=== PATIENT | male | born 1950 | race Caucasian/White ===

== ENCOUNTER 2022-11-19 11:21 | Emergency (ER) | payer MEDICARE ==
[2022-11-19 11:26] VITALS: TEMP 97.4
--- NOTE | 2022-11-19 12:08 | XR ---
EXAMINATION TYPE: XR chest 2V DATE OF EXAM: 11/19/2022 COMPARISON: NONE TECHNIQUE: PA and lateral views submitted. HISTORY: Chest pain FINDINGS: The lungs are clear and there is no pneumothorax, pleural effusion, or focal pneumonia. Heart size normal and no overt failure. Osseous structures demonstrate hypertrophic and degenerative changes of the spine. The nodule in the left lower lobe measuring 1 cm. Mild hyperinflation. No overt failure. IMPRESSION: 1. There is a 1 cm nodule left lower lobe. CT of the chest recommended. 2. No acute infiltrate or overt failure. 3. Correlate for COPD.
[2022-11-19 12:27] LABS: Basophils % (A) 1 %; Eosinophils # (A) 0.1 k/uL (0-0.7); Eosinophils % (A) 2 %; HCT 43.3 % (39.0-53.0); HGB 14.3 gm/dL (13.0-17.5); Lymphocytes # (A) 1.4 k/uL (1.0-4.8); Lymphocytes % (A) 25 %; MCH 29.6 pg (25.0-35.0); MCHC 33.1 g/dL (31.0-37.0); MCV 89.4 fL (80.0-100.0); Mean Platelet Volume 8.1; Monocytes # (A) 0.4 k/uL (0-1.0); Monocytes % (A) 8 %; Neutrophils # (A) 3.4 k/uL (1.3-7.7); Neutrophils % (A) 62 %; Platelet Count 229 k/uL (150-450); RBC 4.84 m/uL (4.30-5.90); WBC 5.6 k/uL (3.8-10.6)
[2022-11-19 12:46] LABS: Prothrombin Time 10.2 sec (9.0-12.0)
[2022-11-19 12:54] LABS: ALT 39 U/L (4-49); AST 31 U/L (17-59); African American GFR (CKD) >90 (>60 ml/min/1.73 sqM); Alkaline Phosphatase 92 U/L (38-126); Anion Gap 9 mmol/L; Blood Urea Nitrogen 13 mg/dL (9-20); Calcium 9.4 mg/dL (8.4-10.2); Carbon Dioxide 26 mmol/L (22-30); Chloride 103 mmol/L (98-107); Glucose 100 mg/dL (74-99); Magnesium 2.2 mg/dL (1.6-2.3); Non-African American GFR(CKD) >90 (>60 ml/min/1.73 sqM); Potassium 4.3 mmol/L (3.5-5.1); Sodium 138 mmol/L (137-145); Total Bilirubin 0.6 mg/dL (0.2-1.3); Total Protein 7.3 g/dL (6.3-8.2)
[2022-11-19 13:22] VITALS: BP 120/72; PULSE 75; RESP 18
--- NOTE | 2022-11-19 13:32 | ED ---
General Adult HPI - General Chief complaint: Recheck/Abnormal Lab/Rx Stated complaint: Abnormal EKG Time Seen by Provider: 11/19/22 11:28 Source: patient, RN notes reviewed Mode of arrival: wheelchair Limitations: no limitations - History of Present Illness Initial comments: 71-year-old male presents emergency Department from PCPs office for evaluation o f abnormal EKG. Patient states he went for presurgical clearance and was sent here for evaluation. Patient states he has no symptoms denies chest pain palpitations headache dizziness nausea vomiting states he is scheduled for colon surgery as he recently brought by his colon cancer. Patient denies any medications patient states that no prior cardiac workup. - Related Data Home Medications Medication Instructions Recorded Confirmed No Known Home Medications 10/24/22 11/19/22 Allergies Allergy/AdvReac Type Severity Reaction Status Date / Time No Known Allergies Allergy Verified 11/19/22 12:14 Review of Systems ROS Statement: Those systems with pertinent positive or pertinent negative responses have been documented in the HPI. ROS Other: All systems not noted in ROS Statement are negative. Past Medical History Past Medical History: Cancer, CVA/TIA Additional Past Medical History / Comment(s): Hx CVA in 2008, "have little bit of balance problems, may have slurred speech when nervous". colon cancer 2022 History of Any Multi-Drug Resistant Organisms: None Reported Past Surgical History: Tonsillectomy Additional Past Surgical History / Comment(s): Colonoscopy, deviated septum surgery. Past Anesthesia/Blood Transfusion Reactions: No Reported Reaction Past Psychological History: No Psychological Hx Reported Smoking Status: Never smoker Past Alcohol Use History: None Reported Past Drug Use History: None Reported - Past Family History Mother Family Medical History: No Reported History General Exam Limitations: no limitations General appearance: alert, in no apparent distress Head exam: Present: atraumatic, normocephalic, normal inspection Eye exam: Present: normal appearance, PERRL, EOMI. Absent: scleral icterus, conjunctival injection, periorbital swelling ENT exam: Present: normal exam, normal oropharynx, mucous membranes moist Neck exam: Present: normal inspection, full ROM. Absent: tenderness, meningismus, lymphadenopathy Respiratory exam: Present: normal lung sounds bilaterally. Absent: respiratory distress, wheezes, rales, rhonchi, stridor Cardiovascular Exam: Present: regular rate, normal rhythm, normal heart sounds. Absent: systolic murmur, diastolic murmur, rubs, gallop, clicks GI/Abdominal exam: Present: soft, normal bowel sounds. Absent: distended, tenderness, guarding, rebound, rigid Neurological exam: Present: alert, oriented X3, CN II-XII intact Course Vital Signs 11/19/22 11/19/22 11:23 13:20 Temperature 97.4 F L Pulse Rate 63 75 Respiratory 20 18 Rate Blood Pressure 160/95 120/72 O2 Sat by Pulse 99 95 Oximetry EKG Findings - EKG Comments: EKG Findings:: EKG performed at 11:33 sinus arrhythmia with occasional PVC rate of 77 LA 174 QRS 111 QT/QTC 376/ 408 - EKG Results: EKG: interpreted by ELYSE Medical Decision Making - Medical Decision Making Was pt. sent in by a medical professional or institution (, PA, CHILDREN LIBRARIAN, urgent care, hospital, or [facility]...) When possible be specific @ -Signed by PCP Did you speak to anyone other than the patient for history (EMS, parent, family, police, friend...)? What history was obtained from this source @ -No Did you review nursing and triage notes (agree or disagree)? Why? @ -I reviewed and agree with nursing and triage notes Were old charts reviewed (outside hosp., previous admission, EMS record, old EKG, old radiological studies, urgent care reports/EKG's, [facility] records)? Report findings @ -No old charts were reviewed Differential Diagnosis (chest pain, altered mental status, abdominal pain women, abdominal pain men, vaginal bleeding, weakness, fever, dyspnea, syncope, headache, dizziness, GI bleed, back pain, seizure, CVA, palpatations, mental health, musculoskeletal)? @ -nDifferential Palpitations Ventricular arrhythmias, atrial arrhythmias, myocardial infarction, anemia, thyrotoxicosis, electrolyte imbalance, hypokalemia, pulmonary embolism, pulmonary disease, drugs, alcohol, anxiety, stress.... This is not meant to be an all-inclusive list.e EKG interpreted by me (3pts min.). @ -As above X-rays interpreted by me (1pt min.). @ -None done CT interpreted by me (1pt min.). @ -None done U/S interpreted by me (1pt. min.). @ -None done What testing was considered but not performed or refused? (CT, X-rays, U/S, labs)? Why? @ -Stress test that can be completed outpatient What meds were considered but not given or refused? Why? @ -None Did you discuss the management of the patient with other professionals (professionals i.e. , PA, CHILDREN LIBRARIAN, lab, RT, psych nurse, elementary school social worker, expansion joint finisher, teacher, senior escrow officer, case coordinator)? Give summary @ -No Was smoking cessation discussed for >3mins.? @ -No Was critical care preformed (if so, how long)? @ -No Were there social determinants of health that impacted care today? How? (Homelessness, low income, unemployed, alcoholism, drug addiction, transportation, low edu. Level, literacy, decrease access to med. care, snf, rehab)? @ -No Was there de-escalation of care discussed even if they declined (Discuss DNR or withdrawal of care, Hospice)? DNR status @ -No What co-morbidities impacted this encounter? (DM, HTN, Smoking, COPD, CAD, Cancer, CVA, ARF, Chemo, Hep., AIDS, mental health diagnosis, sleep apnea, morbid obesity)? @ -None Was patient admitted / discharged? Hospital course, mention meds given and route, prescriptions, significant lab abnormalities, going to OR and other pertinent info. @ -Discharged patient's workup was negative patient is asymptomatic patient has sinus arrhythmia patient can complete outpatient stress test with cardiology. Patient denies chest pain shortness of breath patient laboratory studies unremarkable. Undiagnosed new problem with uncertain prognosis? @ -No Drug Therapy requiring intensive monitoring for toxicity (Heparin, Nitro, Insulin, Cardizem)? @ -No Were any procedures done? @ -No Diagnosis/symptom? @ -[Sinus arrhythmia Acute, or Chronic, or Acute on Chronic? @ -Acute Uncomplicated (without systemic symptoms) or Complicated (systemic symptoms)? @ -Uncomplicated Side effects of treatment? @ -No Exacerbation, Progression, or Severe Exacerbation? @ -No Poses a threat to life or bodily function? How? (Chest pain, USA, [place], pneumonia, PE, COPD, DKA, ARF, appy, cholecystitis, CVA, Diverticulitis, Homicidal, Fiona cidal, threat to staff... and all critical care pts) @ -No - Lab Data Result diagrams: 11/19/22 12:14 11/19/22 12:14 Lab Results 11/19/22 11/19/22 11/19/22 Range/Units 12:14 12:14 12:14 WBC 5.6 (3.8-10.6) k/uL RBC 4.84 (4.30-5.90) m/uL Hgb 14.3 (13.0-17.5) gm/dL Hct 43.3 (39.0-53.0) % MCV 89.4 (80.0-100.0) fL MCH 29.6 (25.0-35.0) pg MCHC 33.1 (31.0-37.0) g/dL RDW 13.0 (11.5-15.5) % Plt Count 229 (150-450) k/uL MPV 8.1 Neutrophils % 62 % Lymphocytes % 25 % Monocytes % 8 % Eosinophils % 2 % Basophils % 1 % Neutrophils # 3.4 (1.3-7.7) k/uL Lymphocytes # 1.4 (1.0-4.8) k/uL Monocytes # 0.4 (0-1.0) k/uL Eosinophils # 0.1 (0-0.7) k/uL Basophils # 0.0 (0-0.2) k/uL PT 10.2 (9.0-12.0) sec INR 1.0 (<1.2) APTT 24.0 (22.0-30.0) sec Sodium 138 (137-145) mmol/L Potassium 4.3 (3.5-5.1) mmol/L Chloride 103 (98-107) mmol/L Carbon Dioxide 26 (22-30) mmol/L Anion Gap 9 mmol/L BUN 13 (9-20) mg/dL Creatinine 0.78 (0.66-1.25) mg/dL Est GFR (CKD-EPI)AfAm >90 (>60 ml/min/1.73 sqM) Est GFR (CKD-EPI)NonAf >90 (>60 ml/min/1.73 sqM) Glucose 100 H (74-99) mg/dL Calcium 9.4 (8.4-10.2) mg/dL Magnesium 2.2 (1.6-2.3) mg/dL Total Bilirubin 0.6 (0.2-1.3) mg/dL AST 31 (17-59) U/L ALT 39 (4-49) U/L Alkaline Phosphatase 92 (38-126) U/L Troponin I (0.000-0.034) ng/mL NT-Pro-B Natriuret Pep pg/mL Total Protein 7.3 (6.3-8.2) g/dL Albumin 4.0 (3.5-5.0) g/dL TSH 2.100 (0.465-4.680) mIU/L 11/19/22 11/19/22 Range/Units 12:14 12:14 WBC (3.8-10.6) k/uL RBC (4.30-5.90) m/uL Hgb (13.0-17.5) gm/dL Hct (39.0-53.0) % MCV (80.0-100.0) fL MCH (25.0-35.0) pg MCHC (31.0-37.0) g/dL RDW (11.5-15.5) % Plt Count (150-450) k/uL MPV Neutrophils % % Lymphocytes % % Monocytes % % Eosinophils % % Basophils % % Neutrophils # (1.3-7.7) k/uL Lymphocytes # (1.0-4.8) k/uL Monocytes # (0-1.0) k/uL Eosinophils # (0-0.7) k/uL Basophils # (0-0.2) k/uL PT (9.0-12.0) sec INR (<1.2) APTT (22.0-30.0) sec Sodium (137-145) mmol/L Potassium (3.5-5.1) mmol/L Chloride (98-107) mmol/L Carbon Dioxide (22-30) mmol/L Anion Gap mmol/L BUN (9-20) mg/dL Creatinine (0.66-1.25) mg/dL Est GFR (CKD-EPI)AfAm (>60 ml/min/1.73 sqM) Est GFR (CKD-EPI)NonAf (>60 ml/min/1.73 sqM) Glucose (74-99) mg/dL Calcium (8.4-10.2) mg/dL Magnesium (1.6-2.3) mg/dL Total Bilirubin (0.2-1.3) mg/dL AST (17-59) U/L ALT (4-49) U/L Alkaline Phosphatase (38-126) U/L Troponin I <0.012 (0.000-0.034) ng/mL NT-Pro-B Natriuret Pep 85 pg/mL Total Protein (6.3-8.2) g/dL Albumin (3.5-5.0) g/dL TSH (0.465-4.680) mIU/L Disposition Clinical Impression: Sinus arrhythmia Disposition: HOME SELF-CARE Condition: Stable Instructions (If sedation given, give patient instructions): Heart Palpitations (ED) Additional Instructions: Please return to the Emergency Department if symptoms worsen or any other concerns. Is patient prescribed a controlled substance at d/c from ED?: No Referrals: Koffi Hu MD [Primary Care Provider] - 1-2 days Time of Disposition: 14:04
== END 2022-11-19 14:15 | disposition home or self-care (01) ==
LOC: EC 11:21
DX: I49.8 Other specified cardiac arrhythmias (principal); Z90.89 Acquired absence of other organs
CPT/HCPCS: 36415; 71046; 80053; 83735; 83880; 84443; 84484; 85025; 85610; 85730; 93005; 99284

== ENCOUNTER 2022-12-15 07:40 | Inpatient (IN) | payer MEDICARE ==
[~2022-12-15 07:40] MED LIST: ACETAMINOPHEN TAB 500 MG TAB PO PRN; ALVIMOPAN 12 MG CAPSULE PO PRN; DEXAMETHASONE SOD PHOSPHATE 4 MG/ML 1 ML VIAL IV ONE; HEPARIN SODIUM,PORCINE/PF 5,000 UNIT/0.5 ML SYRINGE SQ PRN; HYDROmorphone 0.5 MG/0.5 ML SYRINGE IVP PRN; LIDOCAINE 1% (10MG/ML) FOR IV START INTRADERMA PRN; MIDAZOLAM 2 MG/2 ML VIAL IV PRN; ONDANSETRON 4 MG/2 ML VIAL IVP ONE; metroNIDAZOLE-NS PMX 500 MG in SALINE 1 100ML.BAG IVPB PRN
--- NOTE | 2022-12-15 11:27 | P.GSHP ---
History of Present Illness H&P Date: 12/15/22 Chief Complaint: Colon cancer 72-year-old male here today for elective sigmoid resection. Patient recently found to have colon cancer and a 2 cm colon polyp. This is present 2024 cm from the anal verge. He underwent tattooing of this polypoid scar site following the initial colonoscopy. Otherwise doing well. CAT scan showed no evidence of malignancy. Past Medical History Past Medical History: Cancer, CVA/TIA Additional Past Medical History / Comment(s): Hx CVA in 2008, "have little bit of balance problems, may have slurred speech when nervous". colon cancer 2022 History of Any Multi-Drug Resistant Organisms: None Reported Past Surgical History: Tonsillectomy Additional Past Surgical History / Comment(s): Colonoscopy, deviated septum surgery. Past Anesthesia/Blood Transfusion Reactions: No Reported Reaction Past Psychological History: No Psychological Hx Reported Smoking Status: Never smoker Past Alcohol Use History: None Reported Past Drug Use History: None Reported - Past Family History Mother Family Medical History: No Reported History Medications and Allergies Home Medications Medication Instructions Recorded Confirmed Type No Known Home Medications 10/24/22 12/15/22 History Allergies Allergy/AdvReac Type Severity Reaction Status Date / Time No Known Allergies Allergy Verified 12/15/22 11:16 Surgical - Exam Physical exam: General: Well-developed, well-nourished HEENT: Normocephalic, sclerae nonicteric Abdomen: Nontender, nondistended, umbilical hernia with thin overlying skin Extremities: No edema Neuro: Alert and oriented Assessment and Plan (1) Cancer of sigmoid colon Narrative/Plan: 72-year-old male with sigmoid colon cancer. We'll proceed with open low anterior sigmoid resection with umbilical hernia repair. Risks of bleeding, infection, leak, abscess, ostomy, ureteral injury, bladder injury, recurrence, wound infection, anesthesia related complications reviewed. Patient understands and wishes to proceed. Current Visit: Yes Status: Acute Code(s): C18.7 - MALIGNANT NEOPLASM OF SIGMOID COLON SNOMED Code(s): 807778439 (2) Umbilical hernia Current Visit: Yes Status: Acute Code(s): K42.9 - UMBILICAL HERNIA WITHOUT OBSTRUCTION OR GANGRENE SNOMED Code(s): 915616453
[2022-12-15 11:40] LABS: Glucose,Whole Blood 98 mg/dL (70-110)
[2022-12-15] MEDS: LACTATED RINGERS 1,000 ML IV SCH ×2 (11:42→23:01)
[2022-12-15] MEDS ORDERED: NALOXONE 0.4 MG/ML 1 ML VIAL IV PRN (12:56)
--- NOTE | 2022-12-15 12:56 | P.ANPRN ---
Procedure Note - Anesthesia - Epidural/Spinal Epidural Continuous Time Out Performed: Yes Date of Procedure: 12/15/22 Procedure Start Time: 11:51 Procedure Stop Time: 12:01 Location of Patient: PreOp Indication: Acute Post-Operative Pain, Requested by Surgeon Sedation Type: Sedate with meaningful contact maintained Preparation: Sterile Dressing Position: Sitting Catheter: Indwelling Needle Guage: 18 Blood Aspirated: No Pain Paresthesia on Injection Noted: No Events: Uneventful and Well Tolerated (Xylocaine 1.5% with epi 1: 200 3 mL given as a test dose with no adverse effect)
[2022-12-15] MEDS ORDERED: LACTATED RINGERS 1,000 ML IV ONE (13:25)
[2022-12-15] MEDS ORDERED: ONDANSETRON 4 MG/2 ML VIAL IVP PRN (14:31)
[2022-12-15] MEDS ORDERED: HYDROmorphone 1 MG/ML 1 ML SYRINGE IVP PRN (14:31)
[2022-12-15] MEDS ORDERED: METOCLOPRAMIDE 5 MG/ML 2 ML VIAL IVP PRN (14:31)
--- NOTE | 2022-12-15 14:39 | P.OP ---
Date of Procedure: 12/15/22 Procedure(s) Performed: PREOPERATIVE DIAGNOSIS: Sigmoid colon cancer, incarcerated umbilical hernia POSTOPERATIVE DIAGNOSIS: Same PROCEDURE: Low anterior sigmoid resection, umbilical hernia repair, umbilectomy SURGEON: Braulio EBL: 75 mL ANESTHESIA: General COMPLICATIONS: None OPERATIVE PROCEDURE: Patient place in the operative table in the supine position. The patient was placed under general anesthesia. The patient was then placed in lithotomy. The abdomen was prepped and draped in usual sterile fashion. A vertical incision was made extending from the infraumbilical location to the suprapubic location. The skin of the umbilicus was excised as there was some ischemic changes and a small area of induration. The underlying umbilical hernia contained omentum. The adhesions to the hernia sac were cauterized. The hernia sac was excised. The fascia was then opened vertically using electrocautery. The Bookwalter retractor was utilized. The sigmoid colon was fully mobilized by incising the white line of Toldt. The left and right ureters were both identified and preserved. A site was chosen for division of the sigmoid colon proximally. The site of tattooing was present in the distal sigmoid colon. A small colotomy was created and the 29 EEA anvil was advanced into the lumen of the sigmoid colon and milked proximally. The bowel was then divided using a linear 75 stapler and the anvil was brought out adjacent to the staple line. A 3-0 silk pursestring suture was placed around the anvil at that location. The mesentery was divided using the LigaSure device. The inferior mesenteric artery was divided using [address]section took place down to the proximal rectum where the tenia was noted to splay out. The proximal rectum was divided using the contour stapler. The specimen was passed off the field at that point. No signs of bleeding at either staple line was noted after irrigation. The stapler was then inserted into the anus and brought up to the staple line. The obturator was brought out just anterior to the staple line. The 2 portions of the stapler were connected to one another and subsequently tightened and fired. The bowel was clamped proximal to the anastomosis. The rigid sigmoidoscope was utilized to fill the anastomotic site nicely with air. There was saline in the pelvis at this time. No evidence of leak was seen. The abdomen was irrigated with saline. The liver, stomach, visualized colon, and small bowel appeared normal. The midline fascia and fascia at the umbilical hernia site was then reapproximated using 3 separate double-stranded #1 PDS sutures. The subcutaneous tissues were closed using 3-0 Vicryl sutures. The skin was then closed using malissa. Sterile dressings were then applied. DISPOSITION: Stable to recovery room
[2022-12-15] MEDS: ROPIVACAINE 250 MG, HYDROMORPHONE (PF) 5 MG in SODIUM CHLORIDE 0.9% 200 ML EPIDURAL PRN (14:46)
--- NOTE | 2022-12-15 17:00 | P.CONS ---
History of Present Illness - Reason for Consult Consult date: 12/15/22 - Chief Complaint medical management - History of Present Illness 72-year-old man who recently had a colonoscopy and was found to have a cancerous polyp present for sigmoid colectomy with general surgery. Gen. surgery consulted the medicine for medical management. His history includes a stroke/TIA in 2010, but unfortunately patient has not followed with regularly for the last several years. He does not take any medications at home. He has complaints of incisional pain, otherwise denies fevers, chills, nausea, vomiting, chest pain, palpitations, syncope, presyncope, cough, dyspnea, a bdominal pain, constipation, diarrhea, dysuria, dyschezia, numbness/weakness of extremities. Upon my evaluation, patient was afebrile, 125/74, heart rate 68, 96% on 2 L nasal cannula. [id number] glucose was 98. No images to review. All Systems reviewed and pertinent positives and negatives noted in HPI, all other symptoms are negative Gen: in no apparent distress, resting comfortably in bed Eyes: PERRL, no scleral injection or icterus HENT: normocephalic, atraumatic, good hearing acuity, moist mucous membranes Neck: no tracheal deviation, full range of motion Resp: good air exchange, breathing comfortably with no accessory muscle use, no tactile fremitus CVS: good distal perfusion x 4, no pitting edema GI: soft, NTTP, ND, no hepatosplenomegaly : no suprapubic tenderness, no CVAT, aden catheter not present MSK: no clubbing, no cyanosis, no noted contractures of extremities Skin: no noted rashes, petechiae; temperature of skin is appropriate Neuro: moving all extremities without signs of weakness, CN II-XII intact Psych: cooperative, euthymic mood, insight and judgment intact Assessment: History of TIA/CVA Colon cancer status post sigmoidectomy Plan: Vital signs reviewed and noted in the HPI Lab work reviewed and noted in the HPI Ordered CBC, basic metabolic panel, magnesium, lipid panel, TSH, A1c for tomorrow Start Atorvastatin 20 mg at bedtime Patient was counseled on use of aspirin 81 mg in the context of TIA/stroke in the past, however, we will defer this medication at this time due to recent colon surgery Patient is full code Past Medical History Past Medical History: Cancer, CVA/TIA Additional Past Medical History / Comment(s): Hx CVA in 2008, "have little bit of balance problems, may have slurred speech when nervous". colon cancer 2022 History of Any Multi-Drug Resistant Organisms: None Reported Past Surgical History: Tonsillectomy Additional Past Surgical History / Comment(s): Colonoscopy, deviated septum surgery. Past Anesthesia/Blood Transfusion Reactions: No Reported Reaction Past Psychological History: No Psychological Hx Reported Smoking Status: Never smoker Past Alcohol Use History: None Reported Past Drug Use History: None Reported - Past Family History Mother Family Medical History: No Reported History Medications and Allergies Home Medications Medication Instructions Recorded Confirmed Type No Known Home Medications 10/24/22 12/15/22 History Allergies Allergy/AdvReac Type Severity Reaction Status Date / Time No Known Allergies Allergy Verified 12/15/22 11:16 Physical Exam Osteopathic Statement: *. No significant issues noted on an osteopathic structural exam other than those noted in the History and Physical/Consult. Vitals: Vital Signs Temp Pulse Resp BP Pulse Ox 12/15/22 16:33 68 125/74 96 12/15/22 16:18 78 122/68 97 12/15/22 16:03 73 117/68 95 12/15/22 15:48 69 114/65 92 L 12/15/22 15:33 61 122/76 95 12/15/22 15:32 70 16 122/76 95 12/15/22 15:04 69 16 125/59 96 12/15/22 14:49 76 16 132/82 95 12/15/22 14:34 97.7 F 89 16 133/79 97 12/15/22 11:57 80 16 109/62 98 12/15/22 11:26 97.4 F L 78 16 158/80 97 Intake and Output 12/15/22 12/15/22 12/15/22 06:59 14:59 22:59 Intake Total 2151 Output Total 120 Balance 2031 Intake: IV 2151 Output: Urine 70 Estimated Blood Loss 50 Other: Weight 97.9 kg
[2022-12-15] MEDS: HEPARIN SODIUM,PORCINE/PF 5,000 UNIT/0.5 ML SYRINGE SQ SCH ×2 (17:50→23:03)
[2022-12-15] MEDS: D5-0.45% NACL WITH KCL 20MEQ/L 1,000 ML IV SCH ×2 (17:51→23:02)
[2022-12-15] MEDS: ATORVASTATIN 20 MG TAB PO SCH (20:36)
[2022-12-15] MEDS: FAMOTIDINE 20 MG/2 ML VIAL IV SCH (20:36)
--- NOTE | 2022-12-16 06:26 | P.PN ---
Progress Note - Text Date: 12/16/2022 Time: 06:01 The patient is status post low anterior resection, postoperative day number 1. The patient has no complaints of nausea vomiting or headache. The patient does not complain of any lower extremity numbness. The patient states his legs are slightly weak bilaterally. The epidural is running at[ 6] mL per hour. VAS 0-1-10. The epidural will be maintained and adjusted as needed.
[2022-12-16] MEDS: D5-0.45% NACL WITH KCL 20MEQ/L 1,000 ML IV SCH ×3 (08:37→23:36)
[2022-12-16] MEDS: ALVIMOPAN 12 MG CAPSULE PO SCH ×2 (08:37→20:03)
[2022-12-16] MEDS: HEPARIN SODIUM,PORCINE/PF 5,000 UNIT/0.5 ML SYRINGE SQ SCH ×3 (08:37→23:36)
[2022-12-16] MEDS: FAMOTIDINE 20 MG/2 ML VIAL IV SCH ×2 (08:37→20:03)
[2022-12-16 10:58] LABS: Basophils # (A) 0.02 X 10*3/uL (0.00-0.10); Basophils % (A) 0.2 %; Eosinophils # (A) 0 X 10*3/uL (0.04-0.35); Eosinophils % (A) 0 %; HGB 12.6 g/dL (13.0-17.0); Immature Grans, Automated 0.5 %; Lymphocytes # (A) 1.11 X 10*3/uL (0.90-5.00); Lymphocytes % (A) 8.6 %; MCH 29.8 pg (27.0-32.0); MCHC 33.2 g/dL (32.0-37.0); MCV 89.8 fL (80.0-97.0); Mean Platelet Volume 11.4 fL (9.5-12.2); Monocytes # (A) 1.09 X 10*3/uL (0.20-1.00); Monocytes % (A) 8.5 %; NRBC Per 100 WBC 0 /100 WBCS (0.0-0.0); Neutrophils % (A) 82.2 %; Platelet Count 189 X 10*3/uL (140-440); RBC 4.23 X 10*6/uL (4.40-5.60); RDW 13.5 % (11.5-14.5); WBC 12.88 X 10*3/uL (4.50-10.00)
--- NOTE | 2022-12-16 11:33 | P.PN ---
Subjective Progress Note Date: 12/16/22 CHIEF COMPLAINT: Sigmoid colon cancer HISTORY OF PRESENT ILLNESS: Patient is postop day #1 status post low anterior sigmoid resection, umbilical hernia repair and umbilectomy. Patient has epidural in place. He does report his pain is controlled. Denies any nausea or vomiting. No bowel activity. Afebrile. WBC is 12.88 Hgb 12.6 platelets 189 A1c is 5.7 PHYSICAL EXAM: VITAL SIGNS: Reviewed. GENERAL: Well-developed in no acute distress. HEENT: No sclera icterus. Extraocular movements grossly intact. Moist buccal mucosa. Head is atraumatic, normocephalic. ABDOMEN: Soft. Distended. Incisional dressing with a few small areas of saturation. NEUROLOGIC: Alert and oriented. Cranial nerves II through XII grossly intact. ASSESSMENT: 1. Sigmoid colon cancer, incarcerated umbilical hernia status post lower anterior sigmoid resection, umbilical hernia repair and umbilectomy 2. Leukocytosis possibly reactive. Patient did receive steroids PLAN: -Continue epidural for pain control -Repeat CBC in a.m. -Continue clear liquids -Continue IV fluids -Encouraged patient to use incentive spirometer -Encouraged patient to increase activity level -GI prophylaxis Pepcid and DVT prophylaxis subcu heparin Physician Flat Locker note has been reviewed by physician. Signing provider agrees with the documented findings, assessment, and plan of care. I have personally seen and examined the patient, reviewed the VEHICLE WASHER /PAs history, exam and MDM and agree with the assessment and plan as written. Based on total visit time, I have performed more than 50% of the visit. As above: Patient having some belching. Otherwise feels well. Pain is well- controlled. Labs noted. Gradually increase activity. Continue Entereg. Continue epidural and Chapman catheter. Objective - Vital Signs Vital signs: Vital Signs Temp 98.2 F 12/16/22 07:22 Pulse 61 12/16/22 07:22 Resp 16 12/16/22 07:22 BP 117/71 12/16/22 07:22 Pulse Ox 94 L 12/16/22 08:04 FiO2 Intake & Output 12/15/22 12/16/22 12/16/22 18:59 06:59 18:59 Intake Total 2152 240 Output Total 320 825 Balance 1832 -585 Weight 97.9 kg Intake: IV 2152 Oral 240 Output: Urine 270 825 Estimated Blood Loss 50 Other: Voiding Method Indwelling Catheter Indwelling Catheter - Labs CBC & Chem 7: 12/16/22 06:04 12/16/22 06:00 Labs: Abnormal Lab Results - Last 24 Hours (Table) 12/16/22 Range/Units 06:04 WBC 12.88 H (4.50-10.00) X 10*3/uL RBC 4.23 L (4.40-5.60) X 10*6/uL Hgb 12.6 L (13.0-17.0) g/dL Hct 38.0 L (39.6-50.0) % Immature Gran # 0.06 H (0.00-0.04) X 10*3/uL Neutrophils # 10.60 H (1.80-7.70) X 10*3/uL Monocytes # 1.09 H (0.20-1.00) X 10*3/uL Eosinophils # 0 L (0.04-0.35) X 10*3/uL
[2022-12-16 11:37] LABS: African American GFR (CKD) 96.3 (60.0-200.0); BUN/Creat Ratio 14.07 Ratio (12.00-20.00); Blood Urea Nitrogen 12.9 mg/dL (9.0-27.0); Calcium 8.6 mg/dL (8.7-10.3); Carbon Dioxide 24.9 mmol/L (20.0-27.5); Chloride 102 mmol/L (96-109); Chol/HDL Ratio 3.48 Ratio; Glucose 134 mg/dL (70-110); LDL Cholesterol,Calculated 101.5 mg/dL (0.0-131.0); Non-African American GFR(CKD) 83.1 (60.0-200.0); Potassium 4.3 mmol/L (3.5-5.5); Sodium 135 mmol/L (135-145); VLDL Calculation 8.26 mg/dL (5.00-40.00)
--- NOTE | 2022-12-16 13:02 | P.PN ---
Subjective Progress Note Date: 12/16/22 Patient was seen and examined. No acute events overnight. Patient reports well-controlled pain in abdomen. No bowel movement. Not passing gas. Epidural for pain control. He has no complaints today. General: non toxic, no distress, appears at stated age Derm: warm, dry Head: atraumatic, normocephalic, symmetric Eyes: EOMI, no lid lag, anicteric sclera Mouth: no lip lesion, mucus membranes moist Cardiovascular: S1S2 reg, no murmur Lungs: CTA bilateral, no rhonchi, no rales , no accessory muscle use Abdominal: soft, nontender to palpation, no guarding, no bowel sounds. midline surgical scar with dressing c/d/i Ext: no gross muscle atrophy, no edema, no contractures Neuro: no focal neuro deficits Psych: Alert, oriented, appropriate affect Acute blood loss anemia, expected results of surgery Leukocytosis History of TIA/CVA Colon cancer status post sigmoidectomy Based on my assessment of this patient, this patient meets a moderate complexity level of care. Patient has a chronic diagnosis of cancerous polyp status post sigmoid colectomy POD 1. Pain control currently with epidural. Entereg started to help promote gut motility. Leukocytosis likely reactive from surgery with no signs of active infection. Hemoglobin of 12.6 likely from acute blood loss from surgery which is expected. Heparin SQ for DVT prophylaxis. FULL CODE. I have reviewed the following clinical practice consultant notes: Surgery note 12/16, continue clear liquid diet. I have reviewed the results of the following tests: CBC shows leukocytosis of 12.88 and hemoglobin of 12.6. BMP shows glucose 134 and calcium of 8.6. I have ordered the following tests: CBC ordered for tomorrow morning. I have discussed the care of this patient with the following independent historian: None. I have independently interpreted the following test below: None. I have discussed the management of this patient with the following physician: None. Objective - Vital Signs Vital signs: Vital Signs Temp 98.2 F 12/16/22 07:22 Pulse 61 12/16/22 07:22 Resp 16 12/16/22 07:22 BP 117/71 12/16/22 07:22 Pulse Ox 94 L 12/16/22 08:04 FiO2 Intake & Output 12/15/22 12/16/22 12/16/22 18:59 06:59 18:59 Intake Total 2152 240 Output Total 320 825 Balance 1832 -585 Weight 97.9 kg Intake: IV 2152 Oral 240 Output: Urine 270 825 Estimated Blood Loss 50 Other: Voiding Method Indwelling Catheter Indwelling Catheter - Labs CBC & Chem 7: 12/16/22 06:04 12/16/22 06:00 Labs: Abnormal Lab Results - Last 24 Hours (Table) 12/16/22 12/16/22 Range/Units 06:00 06:04 WBC 12.88 H (4.50-10.00) X 10*3/uL RBC 4.23 L (4.40-5.60) X 10*6/uL Hgb 12.6 L (13.0-17.0) g/dL Hct 38.0 L (39.6-50.0) % Immature Gran # 0.06 H (0.00-0.04) X 10*3/uL Neutrophils # 10.60 H (1.80-7.70) X 10*3/uL Monocytes # 1.09 H (0.20-1.00) X 10*3/uL Eosinophils # 0 L (0.04-0.35) X 10*3/uL Anion Gap 8.60 L (10.00-18.00) mmol/L Glucose 134 H (70-110) mg/dL Calcium 8.6 L (8.7-10.3) mg/dL
[2022-12-16] MEDS: ATORVASTATIN 20 MG TAB PO SCH (20:02)
[2022-12-17] MEDS: ROPIVACAINE 250 MG, HYDROMORPHONE (PF) 5 MG in SODIUM CHLORIDE 0.9% 200 ML EPIDURAL PRN (01:52)
[2022-12-17] MEDS: LACTATED RINGERS 1,000 ML IV SCH (02:23)
--- NOTE | 2022-12-17 07:44 | P.PN ---
Progress Note - Text Progress Note Date: 12/17/22 Postop day 2 from laparotomy, epidural catheter inserted for postop pain control. Epidural solution: Ropivacaine 0.1% with Dilaudid 20 mcgs/ml running at 6 mL an hour. Patient pain is well controlled with visual analog score of 2/10. No nausea vomiting, itching, weakness or numbness in the legs or headache reported by the patient. Plan: To continue the epidural infusion at the current rate.
[2022-12-17 09:27] LABS: Basophils % (A) 0 %; Eosinophils # (A) 0.1 k/uL (0-0.7); Eosinophils % (A) 1 %; HGB 12.9 gm/dL (13.0-17.5); Lymphocytes # (A) 2.1 k/uL (1.0-4.8); Lymphocytes % (A) 20 %; MCHC 33.2 g/dL (31.0-37.0); MCV 90.4 fL (80.0-100.0); Mean Platelet Volume 9.6; Monocytes # (A) 0.8 k/uL (0-1.0); Monocytes % (A) 8 %; Neutrophils % (A) 69 %; Platelet Count 181 k/uL (150-450); RBC 4.31 m/uL (4.30-5.90); RDW 13.7 % (11.5-15.5); WBC 10.1 k/uL (3.8-10.6)
[2022-12-17 09:34] LABS: African American GFR (CKD) >90 (>60 ml/min/1.73 sqM); Anion Gap 6 mmol/L; Blood Urea Nitrogen 12 mg/dL (9-20); Calcium 8.5 mg/dL (8.4-10.2); Carbon Dioxide 27 mmol/L (22-30); Chloride 101 mmol/L (98-107); Glucose 102 mg/dL (74-99); Non-African American GFR(CKD) >90 (>60 ml/min/1.73 sqM); Potassium 4.1 mmol/L (3.5-5.1); Sodium 134 mmol/L (137-145)
--- NOTE | 2022-12-17 10:30 | P.PN ---
Subjective Progress Note Date: 12/17/22 CHIEF COMPLAINT: Sigmoid colon cancer HISTORY OF PRESENT ILLNESS: Patient is postop day #2 status post low anterior sigmoid resection, umbilical hernia repair and umbilectomy. Patient has epidural in place. He does report his pain is controlled. He complains of hiccups. He wants advancement of diet. However, patient has had no flatus or bowel movement. Abdomen still remains distended. Denies any nausea or vomiting. Afebrile. WBC is 12.88 down to 10.1 hemoglobin 12.9 platelets 181 sodium is 134 potassium is 4.1 creatinine 0.71 PHYSICAL EXAM: VITAL SIGNS: Reviewed. GENERAL: Well-developed in no acute distress. HEENT: No sclera icterus. Extraocular movements grossly intact. Moist buccal mucosa. Head is atraumatic, normocephalic. ABDOMEN: Soft. Distended. Incisional dressing with a few areas of saturation. Dressing pulled down and incision intact with dried blood and minimal se rosanguineous drainage noted on skin surface NEUROLOGIC: Alert and oriented. Cranial nerves II through XII grossly intact. ASSESSMENT: 1. Sigmoid colon cancer, incarcerated umbilical hernia status post lower anterior sigmoid resection, umbilical hernia repair and umbilectomy 2. Leukocytosis possibly reactive. Patient did receive steroids. Resolved PLAN: -Continue epidural for pain control -Continue Chapman catheter -Changed surgical dressing -Continue clear liquids -Continue Entereg -Continue IV fluids -Encouraged patient to use incentive spirometer -Encouraged patient to increase activity level -GI prophylaxis Pepcid and DVT prophylaxis subcu heparin Physician Motor Coach Operator note has been reviewed by physician. Signing provider agrees with the documented findings, assessment, and plan of care. I have personally seen and examined the patient, reviewed the STITCH BONDING MACHINE DRAWER IN /PAs history, exam and MDM and agree with the assessment and plan as written. Based on total visit time, I have performed more than 50% of the visit. As above: Patient doing fairly well today. Still mild nausea. Some hiccups. Continue clear liquids. Continue ambulation. Remove Chapman catheter and epidural tomorrow. Decrease IV fluid rate. Objective - Vital Signs Vital signs: Vital Signs Temp 98.3 F 12/17/22 07:27 Pulse 69 12/17/22 07:27 Resp 16 12/17/22 07:27 BP 109/68 12/17/22 07:27 Pulse Ox 96 12/17/22 07:27 FiO2 Intake & Output 12/16/22 12/17/22 12/17/22 18:59 06:59 18:59 Intake Total 2330 Output Total 1680 Balance -1680 2330 Intake: Intake, IV Titration 1500 Amount D5-0.45% NaCl with KCl 1500 20Meq/l 1,000 ml @ 125 mls/hr IV .Q8H [facility] Rx#: [id number] Oral 830 Output: Urine 1680 Other: Voiding Method Indwelling Catheter Indwelling Catheter - Labs CBC & Chem 7: 12/17/22 08:05 12/17/22 08:05 Labs: Abnormal Lab Results - Last 24 Hours (Table) 12/16/22 12/16/22 12/17/22 Range/Units 06:00 06:04 08:05 WBC 12.88 H (4.50-10.00) X 10*3/uL RBC 4.23 L (4.40-5.60) X 10*6/uL Hgb 12.6 L 12.9 L (13.0-17.0) g/dL Hct 38.0 L (39.6-50.0) % Immature Gran # 0.06 H (0.00-0.04) X 10*3/uL Neutrophils # 10.60 H (1.80-7.70) X 10*3/uL Monocytes # 1.09 H (0.20-1.00) X 10*3/uL Eosinophils # 0 L (0.04-0.35) X 10*3/uL Sodium (137-145) mmol/L Anion Gap 8.60 L (10.00-18.00) mmol/L Glucose 134 H (70-110) mg/dL Calcium 8.6 L (8.7-10.3) mg/dL 12/17/22 Range/Units 08:05 WBC (4.50-10.00) X 10*3/uL RBC (4.40-5.60) X 10*6/uL Hgb (13.0-17.0) g/dL Hct (39.6-50.0) % Immature Gran # (0.00-0.04) X 10*3/uL Neutrophils # (1.80-7.70) X 10*3/uL Monocytes # (0.20-1.00) X 10*3/uL Eosinophils # (0.04-0.35) X 10*3/uL Sodium 134 L (137-145) mmol/L Anion Gap (10.00-18.00) mmol/L Glucose 102 H (70-110) mg/dL Calcium (8.7-10.3) mg/dL
[2022-12-17] MEDS: FAMOTIDINE 20 MG/2 ML VIAL IV SCH ×2 (10:40→21:23)
[2022-12-17] MEDS: ALVIMOPAN 12 MG CAPSULE PO SCH ×2 (10:40→21:23)
[2022-12-17] MEDS: HEPARIN SODIUM,PORCINE/PF 5,000 UNIT/0.5 ML SYRINGE SQ SCH ×3 (10:40→23:47)
[2022-12-17] MEDS: D5-0.45% NACL WITH KCL 20MEQ/L 1,000 ML IV SCH ×2 (10:41→13:14)
--- NOTE | 2022-12-17 11:08 | P.PN ---
Subjective Progress Note Date: 12/17/22 Patient was seen and examined. No acute events overnight. Patient reports well-controlled pain in abdomen. No bowel movement. Not passing gas. Epidural for pain control. He has no complaints today. General: non toxic, no distress, appears at stated age Derm: warm, dry Head: atraumatic, normocephalic, symmetric Eyes: EOMI, no lid lag, anicteric sclera Mouth: no lip lesion, mucus membranes moist Cardiovascular: S1S2 reg, no murmur Lungs: CTA bilateral, no rhonchi, no rales , no accessory muscle use Abdominal: soft, nontender to palpation, no guarding, no bowel sounds. midline surgical scar with dressing c/d/i Ext: no gross muscle atrophy, no edema, no contractures Neuro: no focal neuro deficits Psych: Alert, oriented, appropriate affect Acute blood loss anemia, expected results of surgery History of TIA/CVA Colon cancer status post sigmoidectomy Resolved: Leukocytosis Based on my assessment of this patient, this patient meets a moderate complexity level of care. Patient has a chronic diagnosis of cancerous polyp status post sigmoid colectomy POD 2. Pain control currently with epidural. Entereg started to help promote gut motility. Leukocytosis likely reactive from surgery with no signs of active infection. Hemoglobin of 12.9 likely from acute blood loss from surgery which is expected. Heparin SQ for DVT prophylaxis. FULL CODE. I have reviewed the following marketing consultant notes: Surgery note 12/17, continue clear liquid diet. I have reviewed the results of the following tests: CBC shows hemoglobin of 12.9. BMP shows glucose 134 and calcium of 8.5. I have ordered the following tests: None. I have discussed the care of this patient with the following independent histor [place]: None. I have independently interpreted the following test below: None. I have discussed the management of this patient with the following physician: The case was discussed with Gladis MARES, continue present management, advance diet when + BS Objective - Vital Signs Vital signs: Vital Signs Temp 98.3 F 12/17/22 07:27 Pulse 69 12/17/22 07:27 Resp 16 12/17/22 07:27 BP 109/68 12/17/22 07:27 Pulse Ox 96 12/17/22 07:27 FiO2 Intake & Output 12/16/22 12/17/22 12/17/22 18:59 06:59 18:59 Intake Total 2330 Output Total 1680 Balance -1680 2330 Intake: Intake, IV Titration 1500 Amount D5-0.45% NaCl with KCl 1500 20Meq/l 1,000 ml @ 125 mls/hr IV .Q8H [facility] Rx#: [id number] Oral 830 Output: Urine 1680 Other: Voiding Method Indwelling Catheter Indwelling Catheter - Labs CBC & Chem 7: 12/17/22 08:05 12/17/22 08:05 Labs: Abnormal Lab Results - Last 24 Hours (Table) 12/16/22 12/17/22 12/17/22 Range/Units 06:00 08:05 08:05 Hgb 12.9 L (13.0-17.5) gm/dL Sodium 134 L (137-145) mmol/L Anion Gap 8.60 L (10.00-18.00) mmol/L Glucose 134 H 102 H (70-110) mg/dL Calcium 8.6 L (8.7-10.3) mg/dL
[2022-12-17] MEDS: ATORVASTATIN 20 MG TAB PO SCH (21:23)
[2022-12-18] MEDS: LACTATED RINGERS 1,000 ML IV SCH (05:42)
[2022-12-18] MEDS: D5-0.45% NACL WITH KCL 20MEQ/L 1,000 ML IV SCH ×2 (05:43→15:28)
--- NOTE | 2022-12-18 06:14 | P.PN ---
Progress Note - Text Progress Note Date: 12/18/22 The patient has an epidural catheter for postoperative pain control. Postop d ay #( 3 ), status post colon resection. The patient is doing well. The pain is well controlled. The pt rates his pain at 2/10. Patient denies any weakness or paresthesia in the lower extremities. Mild back pain. There are no signs of infection around the epidural catheter skin entry site. The epidural catheter will come out today and the patient will continue with IV and oral analgesics from the surgical services for pain control.
[2022-12-18] MEDS: HEPARIN SODIUM,PORCINE/PF 5,000 UNIT/0.5 ML SYRINGE SQ SCH ×3 (09:22→23:38)
[2022-12-18] MEDS: FAMOTIDINE 20 MG/2 ML VIAL IV SCH ×2 (09:22→20:57)
[2022-12-18] MEDS: ALVIMOPAN 12 MG CAPSULE PO SCH ×2 (09:22→20:57)
[2022-12-18] MEDS: KETOROLAC 15 MG/ML 1 ML VIAL IVP SCH ×3 (11:53→23:37)
--- NOTE | 2022-12-18 14:26 | P.PN ---
Subjective Progress Note Date: 12/18/22 CHIEF COMPLAINT: Sigmoid colon cancer HISTORY OF PRESENT ILLNESS: Patient is postop day #3 status post low anterior sigmoid resection, umbilical hernia repair and umbilectomy. Patient's epidural and Chapman catheter were discontinued this morning. He does report some abdominal pain. Denies any nausea or vomiting. Still no bowel activity. Afebrile. WBC 12.8 down to 10.1 PHYSICAL EXAM: VITAL SIGNS: Reviewed. GENERAL: Well-developed in no acute distress. HEENT: No sclera icterus. Extraocular movements grossly intact. Moist buccal mucosa. Head is atraumatic, normocephalic. ABDOMEN: Soft. Distended. Incisional dressing with an area of drainage noted NEUROLOGIC: Alert and oriented. Cranial nerves II through XII grossly intact. ASSESSMENT: 1. Sigmoid colon cancer, incarcerated umbilical hernia status post lower anterior sigmoid resection, umbilical hernia repair and umbilectomy 2. Leukocytosis possibly reactive. Patient did receive steroids. Resolved PLAN: -Epidural Chapman catheter discontinued -Encouraged patient to ambulate -Toradol added for pain -Continue clear liquids -Continue Entereg -Continue IV fluids at decreased rate -Encouraged patient to use incentive spirometer -Encouraged patient to increase activity level -GI prophylaxis Pepcid and DVT prophylaxis subcu heparin Physician Fly Maker note has been reviewed by physician. Signing provider agrees with the documented findings, assessment, and plan of care. I have personally seen and examined the patient, reviewed the STREAM CONTROL OFFICER /PAs history, exam and MDM and agree with the assessment and plan as written. Based on total visit time, I have performed more than 50% of the visit. As above: Patient doing well today. Pain is minimal. No flatus. No nausea or vomiting. Advance diet to full liquids. Continue increasing activity. Objective - Vital Signs Vital signs: Vital Signs Temp 97.9 F 12/18/22 11:33 Pulse 64 12/18/22 11:33 Resp 18 12/18/22 11:33 BP 124/69 12/18/22 11:33 Pulse Ox 98 12/18/22 11:42 FiO2 Intake & Output 12/17/22 12/18/22 12/18/22 18:59 06:59 18:59 Intake Total 55.7 78.4 Output Total 1450 2700 Balance -1394.3 -2621.6 Intake: Intake, IV Titration 55.7 78.4 Amount Ropivacaine 250 mg 55.7 78.4 Hydromorphone (Pf) 5 mg In Sodium Chloride 0.9% 200 ml @ Per Protocol EPIDURAL .Q0M PRN Rx#: [id number] Oral 0 Output: Urine 1450 2700 Other: Voiding Method Indwelling Catheter Indwelling Catheter Indwelling Catheter - Labs CBC & Chem 7: 12/17/22 08:05 12/17/22 08:05
--- NOTE | 2022-12-18 14:57 | P.PN ---
Subjective Progress Note Date: 12/18/22 Patient was seen and examined. No acute events overnight. Patient reports well-controlled pain in abdomen. No bowel movement. Not passing gas. Epidural discontinued. He has no complaints today. General: non toxic, no distress, appears at stated age Derm: warm, dry Head: atraumatic, normocephalic, symmetric Eyes: EOMI, no lid lag, anicteric sclera Mouth: no lip lesion, mucus membranes moist Cardiovascular: good distal perfusion in all 4 extremities Lungs: no accessory muscle use Abdominal: soft, nontender to palpation, no guarding, no bowel sounds. midline surgical scar with dressing c/d/i Ext: no gross muscle atrophy, no edema, no contractures Neuro: no focal neuro deficits Psych: Alert, oriented, appropriate affect Acute blood loss anemia, expected results of surgery History of TIA/CVA Colon cancer status post sigmoidectomy Resolved: Leukocytosis Based on my assessment of this patient, this patient meets a moderate complexity level of care. Patient has a chronic diagnosis of cancerous polyp status post sigmoid colectomy POD 3. Pain control currently with epidural. Entereg started to help promote gut motility. Leukocytosis likely reactive from surgery with no signs of active infection. Hemoglobin of 12.9 likely from acute blood loss from surgery which is expected. Heparin SQ for DVT prophylaxis. FULL CODE. I have reviewed the following solar sales consultant notes: Surgery note 12/18, continue clear liquid diet. I have reviewed the results of the following tests: None. I have ordered the following tests: None. I have discussed the care of this patient with the following independent historian: None. I have independently interpreted the following test below: None. I have discussed the management of this patient with the following physician: The case was discussed with Gladis MARES, continue present management, advance diet when + BS Objective - Vital Signs Vital signs: Vital Signs Temp 97.9 F 12/18/22 11:33 Pulse 64 12/18/22 11:33 Resp 18 12/18/22 11:33 BP 124/69 12/18/22 11:33 Pulse Ox 98 12/18/22 11:42 FiO2 Intake & Output 12/17/22 12/18/22 12/18/22 18:59 06:59 18:59 Intake Total 55.7 78.4 Output Total 1450 2700 Balance -1394.3 -2621.6 Intake: Intake, IV Titration 55.7 78.4 Amount Ropivacaine 250 mg 55.7 78.4 Hydromorphone (Pf) 5 mg In Sodium Chloride 0.9% 200 ml @ Per Protocol EPIDURAL .Q0M PRN Rx#: [id number] Oral 0 Output: Urine 1450 2700 Other: Voiding Method Indwelling Catheter Indwelling Catheter Indwelling Catheter - Labs CBC & Chem 7: 12/17/22 08:05 12/17/22 08:05
[2022-12-18] MEDS: ATORVASTATIN 20 MG TAB PO SCH (20:57)
[2022-12-19] MEDS: LACTATED RINGERS 1,000 ML IV SCH ×2 (00:32→17:42)
[2022-12-19] MEDS: D5-0.45% NACL WITH KCL 20MEQ/L 1,000 ML IV SCH (04:20)
[2022-12-19] MEDS: KETOROLAC 15 MG/ML 1 ML VIAL IVP SCH ×4 (04:22→22:13)
[2022-12-19] MEDS: FAMOTIDINE 20 MG/2 ML VIAL IV SCH ×2 (10:02→22:20)
[2022-12-19] MEDS: ALVIMOPAN 12 MG CAPSULE PO SCH ×2 (10:04→22:20)
[2022-12-19] MEDS: HEPARIN SODIUM,PORCINE/PF 5,000 UNIT/0.5 ML SYRINGE SQ SCH ×3 (10:04→22:21)
[2022-12-19] MEDS ORDERED: HYDROcodone/APAP 5-325MG 1 EACH TAB PO PRN (12:25)
[2022-12-19] MEDS ORDERED: ACETAMINOPHEN TAB 325 MG TAB PO PRN (12:26)
--- NOTE | 2022-12-19 12:29 | P.PN ---
Subjective Progress Note Date: 12/19/22 CHIEF COMPLAINT: Sigmoid colon cancer HISTORY OF PRESENT ILLNESS: Patient is postop day #4 status post low anterior sigmoid resection, umbilical hernia repair and umbilectomy. Patient sitting up at bedside chair. He is rating his pain about a 1 out of 10. Still no bowel activity. Denies any nausea vomiting. He is tolerating a full liquid diet. Afebrile. PHYSICAL EXAM: VITAL SIGNS: Reviewed. GENERAL: Well-developed in no acute distress. HEENT: No sclera icterus. Extraocular movements grossly intact. Moist buccal mucosa. Head is atraumatic, normocephalic. ABDOMEN: Soft. Distended. Incisional dressing with an area of drainage noted NEUROLOGIC: Alert and oriented. Cranial nerves II through XII grossly intact. ASSESSMENT: 1. Sigmoid colon cancer, incarcerated umbilical hernia status post lower anterior sigmoid resection, umbilical hernia repair and umbilectomy 2. Leukocytosis possibly reactive. Patient did receive steroids. Resolved PLAN: -Continue full liquid diet -Discontinue IV fluids -Encouraged patient to ambulate -Continue Entereg -Awaiting bowel activity -Epidural Chapman catheter discontinued -[place] and Tylenol PRN added for oral pain medication -Encouraged patient to use incentive spirometer -Encouraged patient to increase activity level -GI prophylaxis Pepcid and DVT prophylaxis subcu heparin Physician Import Coordinator note has been reviewed by physician. Signing provider agrees with the documented findings, assessment, and plan of care. Objective - Vital Signs Vital signs: Vital Signs Temp 97.4 F L 12/19/22 07:31 Pulse 56 L 12/19/22 07:31 Resp 18 12/19/22 07:31 BP 132/72 12/19/22 07:31 Pulse Ox 98 12/19/22 07:31 FiO2 Intake & Output 12/18/22 12/19/22 12/19/22 18:59 06:59 18:59 Intake Total 1730 Balance 1730 Intake: Intake, IV Titration 900 Amount D5-0.45% NaCl with KCl 900 20Meq/l 1,000 ml @ 75 mls /hr IV .[id number] [facility] Rx#: [id number] Oral 830 Other: Voiding Method Indwelling Catheter Toilet # Voids 2 1 - Labs CBC & Chem 7: 12/17/22 08:05 12/17/22 08:05
--- NOTE | 2022-12-19 14:58 | P.PN ---
Subjective Progress Note Date: 12/19/22 Patient was seen and examined. No acute events overnight. Patient reports well-controlled pain in abdomen. No bowel movement. Not passing gas. Tolerating FLD. Epidural discontinued. He has no complaints today. General: non toxic, no distress, appears at stated age Derm: warm, dry Head: atraumatic, normocephalic, symmetric Eyes: EOMI, no lid lag, anicteric sclera Mouth: no lip lesion, mucus membranes moist Cardiovascular: good distal perfusion in all 4 extremities Lungs: no accessory muscle use Abdominal: soft, nontender to palpation, no guarding, no bowel sounds. midline surgical scar with dressing c/d/i Ext: no gross muscle atrophy, no edema, no contractures Neuro: no focal neuro deficits Psych: Alert, oriented, appropriate affect Acute blood loss anemia, expected results of surgery History of TIA/CVA Colon cancer status post sigmoidectomy Resolved: Leukocytosis Based on my assessment of this patient, this patient meets a low complexity level of care. Patient has a chronic diagnosis of cancerous polyp status post sigmoid colectomy POD 4. Pain control currently with epidural. Entereg started to help promote gut motility. Leukocytosis likely reactive from surgery with no signs of active infection. Hemoglobin of 12.9 likely from acute blood loss from surgery which is expected. Heparin SQ for DVT prophylaxis. FULL CODE. I have reviewed the following building energy consultant notes: Surgery note 12/19, continue full liquid diet. I have reviewed the results of the following tests: None. I have ordered the following tests: None. I have discussed the care of this patient with the following independent historian: None. I have independently interpreted the following test below: None. I have discussed the management of this patient with the following physician: None. Objective - Vital Signs Vital signs: Vital Signs Temp 97.8 F 12/19/22 12:27 Pulse 58 L 12/19/22 12:27 Resp 16 12/19/22 12:27 BP 124/70 12/19/22 12:27 Pulse Ox 97 12/19/22 12:27 FiO2 Intake & Output 12/18/22 12/19/22 12/19/22 18:59 06:59 18:59 Intake Total 1730 Balance 1730 Intake: Intake, IV Titration 900 Amount D5-0.45% NaCl with KCl 900 20Meq/l 1,000 ml @ 75 mls /hr IV .[id number] [facility] Rx#: [id number] Oral 830 Other: Voiding Method Indwelling Catheter Toilet Toilet # Voids 2 1 - Labs CBC & Chem 7: 12/17/22 08:05 12/17/22 08:05
[2022-12-19] MEDS: ATORVASTATIN 20 MG TAB PO SCH (22:20)
[2022-12-20 02:07] VITALS: TEMP 98.3
[2022-12-20 05:49] VITALS: BP 122/74; PULSE 58; RESP 16
[2022-12-20] MEDS: KETOROLAC 15 MG/ML 1 ML VIAL IVP SCH ×2 (05:55→11:28)
[2022-12-20] MEDS: FAMOTIDINE 20 MG/2 ML VIAL IV SCH (09:13)
[2022-12-20] MEDS: ALVIMOPAN 12 MG CAPSULE PO SCH (09:13)
[2022-12-20] MEDS: HEPARIN SODIUM,PORCINE/PF 5,000 UNIT/0.5 ML SYRINGE SQ SCH (09:14)
--- NOTE | 2022-12-20 09:42 | P.DS ---
Providers Date of admission: 12/15/22 10:59 Expected date of discharge: 12/20/22 Attending physician: Isai Ramsey Consults: 12/15/22 14:39 Consult Physician Routine Consulting Provider: Angela Robles Consult Reason/Comments: Medical management Do you want consulting provider notified?: Yes Primary care physician: [facility] Course: This a 72-year-old male who underwent colectomy for colon cancer. Dr. Ramsey perform this. Patient did well postoperatively. Please see hospital chart for details. Procedures: D sigmoid colectomy Patient Condition at Discharge: Good Plan - Discharge Summary New Discharge Prescriptions: New Ibuprofen [Motrin] 600 mg PO Q6HR PRN #40 tab PRN Reason: Pain Acetaminophen Tab [Tylenol] 650 mg PO Q6H #30 tab Discharge Medication List Acetaminophen Tab [Tylenol] 650 mg PO Q6H #30 tab 12/20/22 [Rx] Ibuprofen [Motrin] 600 mg PO Q6HR PRN #40 tab 12/20/22 [Rx] Follow up Appointment(s)/Referral(s): Isai Ramsey MD [Medical Doctor] - 1 Week [facility], [NON-STAFF] - 1 Week Discharge Disposition: HOME SELF-CARE
== END 2022-12-20 12:15 | disposition home or self-care (01) | DRG 330 ==
LOC: 2ORMAIN 10:59 → 5NMEDONC 14:44
PROVIDERS: ADMIT Surgery; ATTEND Surgery
PROC: 0DJD8ZZ Inspection of Lower Intestinal Tract, Via Natural or Artificial Opening Endoscopic (ICD-10-PCS; principal; 2022-12-15 11:15)
PROC: 0WBFXZZ Excision of Abdominal Wall, External Approach (ICD-10-PCS; principal; 2022-12-15 11:15)
PROC: 0WQF0ZZ Repair Abdominal Wall, Open Approach (ICD-10-PCS; principal; 2022-12-15 11:15)
PROC: 0DTN0ZZ Resection of Sigmoid Colon, Open Approach (ICD-10-PCS; principal; 2022-12-15 11:15)
DX: C18.7 Malignant neoplasm of sigmoid colon (principal); D62 Acute posthemorrhagic anemia; K42.0 Umbilical hernia with obstruction, without gangrene; D72.829 Elevated white blood cell count, unspecified; M54.9 Dorsalgia, unspecified; Z86.73 Personal history of transient ischemic attack (TIA), and cerebral infarction without residual deficits
CPT/HCPCS: 80048; 80061; 83036; 83735; 84443; 85025; 88302; 88309; 94760

== ENCOUNTER → 2022-12-15 | Outpatient (CLI) | payer MEDICARE ==
[2022-12-15 11:09] LABS: Prothrombin Time 10.9 sec (9.0-12.0)
[2022-12-15 11:10] LABS: Partial Thromboplastin Time 24.5 sec (22.0-30.0)
[2022-12-15 11:28] LABS: Appearance,Urine Clear (Clear); Bilirubin,Urine Negative (Negative); Blood,Urine Negative (Negative); Color,Urine Dark Brown; Glucose,Urine (UA) Negative (Negative); Ketones,Urine 2+ (Negative); Leukocyte Esterase,Urine Moderate (Negative); Mucus,Urine Many /hpf; Nitrite,Urine Negative (Negative); PH, Urine 5.5 (5.0-8.0); Protein,Urine Trace (Negative); RBC,Urine 2 /hpf (0-5); Specific Gravity,Urine 1.028 (1.001-1.035); Squamous Epithelial Cell,Urine <1 /hpf (0-4); WBC,Urine 1 /hpf (0-5)
[2022-12-15 12:42] LABS: HCT 44.1 % (39.0-53.0); HGB 14.6 gm/dL (13.0-17.5); MCH 30.4 pg (25.0-35.0); MCHC 33.2 g/dL (31.0-37.0); MCV 91.7 fL (80.0-100.0); Mean Platelet Volume 8.9; Platelet Count 222 k/uL (150-450); RBC 4.81 m/uL (4.30-5.90); RDW 13.3 % (11.5-15.5); WBC 4.6 k/uL (3.8-10.6)
[2022-12-15 15:43] LABS: ALT 22 U/L (10-49); AST 22 U/L (14-35); African American GFR (CKD) 84.7 (60.0-200.0); Albumin 4.5 g/dL (3.8-4.9); Albumin/Globulin Ratio 1.52 (1.60-3.17); Alkaline Phosphatase 108 U/L (41-126); BUN/Creat Ratio 12.84 Ratio (12.00-20.00); Blood Urea Nitrogen 13.1 mg/dL (9.0-27.0); Calcium 9.7 mg/dL (8.7-10.3); Carbon Dioxide 26.5 mmol/L (20.0-27.5); Chloride 102 mmol/L (96-109); Globulin 2.9 g/dL (1.6-3.3); Glucose 100 mg/dL (70-110); Magnesium 2.3 mg/dL (1.5-2.4); Non-African American GFR(CKD) 73.1 (60.0-200.0); Potassium 4.1 mmol/L (3.5-5.5); Sodium 140 mmol/L (135-145); Total Protein 7.4 g/dL (6.2-8.2)
[2022-12-17 13:22] LABS: NRBC Per 100 WBC 0 /100 WBCS (0.0-0.0)
== END | disposition home or self-care (01) ==
LOC: LABPAT 09:34
PROVIDERS: ATTEND Surgery
DX: Z01.818 Encounter for other preprocedural examination (principal); C18.9 Malignant neoplasm of colon, unspecified; I49.3 Ventricular premature depolarization; I23.1 Atrial septal defect as current complication following acute myocardial infarction; R94.31 Abnormal electrocardiogram [ECG] [EKG]
CPT/HCPCS: 36415; 80053; 81001; 83735; 84443; 84481; 85027; 85610; 85730; 86850; 86900; 86901; 93005

== ENCOUNTER → 2024-08-01 | Outpatient (CLI) | payer MEDICARE ==
--- NOTE | 2024-08-01 11:17 | MR ---
EXAMINATION TYPE: MR Prostate wo/w con DATE OF EXAM: 08/01/2024 7:38 AM COMPARISON: None. CLINICAL INDICATION: Male, 73 years old with history of elevated PSA; Elevated PSA TECHNIQUE: Multi-planar, multi-sequence imaging of the pelvis is performed prior to and following the uncomplicated administration of bolus intravenous gadolinium. IV Contrast: 9 mL Gadobutrol Interpretive Criteria: PI-RADS v2.1 SERUM PSA: 12/2023=6.65, 06/2024=8.28 SURGICAL PATHOLOGY: No data available. FINDINGS: Prostatic dimensions: 5.9 x 5.7 x 4.5 cm. Ellipsoid Volume:79.24 (PSA density=0.10 ng/mL/mL) CENTRAL GLAND (Central and Transition Zones/CZ+TZ): Multiple bilateral, heterogenous appearing hypertrophic stromal nodules, without suspicious lesion. M edian lobe hypertrophy with protrusion into the base of the bladder. (PI-RADS 2) PERIPHERAL ZONE (PZ): Thin peripheral zone due to BPH of the central gland. Gas in the rectum limits evaluation on diffusio n-weighted imaging. Left peripheral gland apex 9 mm low T2/ low ADC signal lesion with some enhanceme nt within this lesion.(PI-RADS 3) SEMINAL VESICLES (SV): Symmetric and unremarkable. PERIPROSTATIC TISSUES: Unremarkable. LYMPH NODES: No enlarged pelvic lymph node. REMAINING PELVIS: Bladder wall is within normal limits given distention. Suspected superior trabeculation anteriorly No abnormal free or organized intrapelvic fluid collection. No pathologic bowel dilation or mural thickening. Bilateral fat containing inguinal hernias. OSSEOUS STRUCTURES: No suspicious osseous abnormality. IMPRESSION: 1. PI-RADS 3 lesion in the left peripheral zone apex posteriorly measuring 9 mm, diffusion weighted i maging sequences are limited due to gas in the rectum this does have low T2/low ADC signal however. T issue sampling recommended 2. Moderate BPH, estimated gland volume 79.24 mL. 3. No suspicious osseous lesion. No lymphadenopathy. No evidence of prostate adenocarcinoma involving the periprostatic tissues. [facility], , 08/01/2024 11:14 AM
== END | disposition home or self-care (01) ==
LOC: RADMRIMAIN 06:00
PROVIDERS: ATTEND Urology
DX: N40.0 Benign prostatic hyperplasia without lower urinary tract symptoms (principal); R97.20 Elevated prostate specific antigen [PSA]
CPT/HCPCS: 72197; A9585

== ENCOUNTER → 2024-09-02 | Outpatient (CLI) | payer MEDICARE ==
[2024-09-02 15:10] LABS: Basophils # (A) 0.05 X 10*3/uL (0.00-0.10); Basophils % (A) 0.7 %; Eosinophils # (A) 0.18 X 10*3/uL (0.04-0.35); Eosinophils % (A) 2.7 %; HCT 44.1 % (39.6-50.0); HGB 14.6 g/dL (13.0-17.0); Lymphocytes # (A) 1.45 X 10*3/uL (0.90-5.00); Lymphocytes % (A) 21.6 %; MCH 29.3 pg (27.0-32.0); MCHC 33.1 g/dL (32.0-37.0); MCV 88.6 FL (80.0-97.0); Mean Platelet Volume 10.4 FL (9.5-12.2); Monocytes # (A) 0.63 X 10*3/uL (0.20-1.00); Monocytes % (A) 9.4 %; NRBC Per 100 WBC 0 X 10*3/uL (0.00-0.01); Neutrophils # (A) 4.37 X 10*3/uL (1.80-7.70); Neutrophils % (A) 65.3 %; Platelet Count 199 X 10*3/uL (140-440); RBC 4.98 X 10*6/uL (4.40-5.60); RDW 13.1 % (11.5-14.5)
[2024-09-02 15:23] LABS: BUN/Creat Ratio 12.11 Ratio (12.00-20.00); Blood Urea Nitrogen 10.9 mg/dL (9.0-27.0); Calcium 9.7 mg/dL (8.7-10.3); Carbon Dioxide 26.3 mmol/L (21.6-31.8); Chloride 106 mmol/L (96-109); Glucose 109 mg/dL (70-110); Potassium 4.4 mmol/L (3.5-5.5); Sodium 141 mmol/L (135-145)
[2024-09-02 20:18] LABS: Appearance,Urine Clear (Clear); Bilirubin,Urine Negative (Negative); Blood,Urine Negative (Negative); Color,Urine Yellow (Yellow); Ketones,Urine Negative (Negative); Nitrite,Urine Negative (Negative); PH, Urine 5.5; Specific Gravity,Urine 1.018 (1.001-1.030); Urobilinogen,Urine 0.2 E.U./DL
== END | disposition home or self-care (01) ==
LOC: LABWHC1 09:22
PROVIDERS: ATTEND Urology
DX: Z01.812 Encounter for preprocedural laboratory examination (principal); R97.20 Elevated prostate specific antigen [PSA]
CPT/HCPCS: 36415; 80048; 81003; 85025; 87086

== ENCOUNTER → 2024-09-13 | Day surgery (SDC) | payer MEDICARE ==
[~2024-09-13] MED LIST changes: -ACETAMINOPHEN TAB 500 MG TAB PO PRN; -ALVIMOPAN 12 MG CAPSULE PO PRN; -DEXAMETHASONE SOD PHOSPHATE 4 MG/ML 1 ML VIAL IV ONE; -HEPARIN SODIUM,PORCINE/PF 5,000 UNIT/0.5 ML SYRINGE SQ PRN; -HYDROmorphone 0.5 MG/0.5 ML SYRINGE IVP PRN; +LIDOCAINE 1% INJ 10MG/ML (20 ML MDV) ONE; -MIDAZOLAM 2 MG/2 ML VIAL IV PRN; -ONDANSETRON 4 MG/2 ML VIAL IVP ONE; +PROPOFOL 10 MG/ML 20 ML VIAL IV ONE; +fentaNYL (PF) 50 MCG/ML 2 ML AMP IV PRN; -metroNIDAZOLE-NS PMX 500 MG in SALINE 1 100ML.BAG IVPB PRN
--- NOTE | 2024-09-13 10:04 | P.HPIHPCON ---
History of Present Illness H&P Date: 09/13/24 This is a 73-year-old male with history of elevated PSA at 8.3, MRI showed evidence of a PI-RADS 3 lesion along the left apex. Discussed with him given this finding I do recommend proceeding with an MRI fusion biopsy of the prostate. Aware of the risk which includes but not limited to bleeding, and infection. He understood all the risk and agreed to proceed Consent for Procedure: I have explained the operation/procedure to the patient, including the risks, benefits, side effects, alternative therapies (including not receiving the proposed treatment or service), the likelihood of the patient achieving his/her goals, and potential recuperation problems for the procedure/sedation/analgesia, as well as any blood products, if indicated. I also explained to the patient the risks, benefits and side effects of the alternatives, as well as the risks related to not receiving the proposed procedure, care, treatment, or services. Past Medical History Past Medical History: Cancer, CVA/TIA, Hyperlipidemia, Renal Disease Additional Past Medical History / Comment(s): Hx CVA in 2008, "have little bit of balance problems, may have slurred speech when nervous". colon cancer 2022. irregular heart rhythm in the past does not know name. BPH, with area of concern. History of Any Multi-Drug Resistant Organisms: None Reported Past Surgical History: Bowel Resection, Hernia Repair, Tonsillectomy Additional Past Surgical History / Comment(s): umbilical hernia repair.Colonoscopy, deviated septum surgery. Past Anesthesia/Blood Transfusion Reactions: No Reported Reaction Smoking Status: Never smoker - Past Family History Mother Family Medical History: Diabetes Mellitus, Myocardial Infarction ([place]) Father Family Medical History: Diabetes Mellitus Additional Family Medical History / Comment(s): parkinsons. of pneumonia Medications and Allergies Home Medications Medication Instructions Recorded Confirmed Type Rosuvastatin [Crestor] 20 mg PO HS 09/09/24 09/09/24 History Allergies Allergy/AdvReac Type Severity Reaction Status Date / Time No Known Allergies Allergy Verified 09/09/24 08:36 Surgical - Exam - General no distress, no pain - Eyes normal ocular movement, no pale - ENT normal nares, normal mucosa - Respiratory normal expansion, normal respiratory effort - Abdomen Abdomen: soft, non tender Assessment and Plan Assessment: OR for MRI fusion biopsy of the prostate
[2024-09-13 11:22] VITALS: RESP 16; TEMP 97.3
[2024-09-13] MEDS: LACTATED RINGERS 1,000 ML IV SCH (11:28)
[2024-09-13] MEDS: GENTAMICIN 40 MG/ML 2 ML VIAL IM PRN (11:29)
[2024-09-13] MEDS: IV FLUID CONTINUATION 1,000 ML IV ONE (11:33)
[2024-09-13 13:47] VITALS: BP 144/78; PULSE 66
--- NOTE | 2024-09-13 14:10 | P.OP ---
Date of Procedure: 09/13/24 Preoperative Diagnosis: Elevated PSA Postoperative Diagnosis: Same Procedure(s) Performed: MRI fusion biopsy of the prostate Implants: None Anesthesia: MAC Estimated Blood Loss (ml): 0 Pathology: other (Prostate biopsies) Condition: stable Disposition: PACU Indications for Procedure: This is a 73-year-old male with history of elevated PSA at 8.3, MRI showed evidence of a PI-RADS 3 lesion along the left apex. Discussed with him given this finding I do recommend proceeding with an MRI fusion biopsy of the prostate. Aware of the risk which includes but not limited to bleeding, and infection. He understood all the risk and agreed to proceed Description of Procedure: The patient was taken to the operating room and placed in the left lateral decubitus position. The iSnap transrectal ultrasound probe was placed intrarectally. It was then placed within the stand of the [employer] MRI/TRUS Fusion for Prostate Biopsy system. The prostate was imaged in both the axial and sagittal planes,. Using the Biopsy gun, 3 biopsies were obtained from the target lesion, there were was one lesions, . The remaining 12 biopsies of the peripheral zone were obtained utilizing a standard template. Once the procedure was completed, the ultrasound probe was removed. The patient tolerated the procedure well was taken to the recovery room stable condition
== END ==
LOC: OR 10:43
PROVIDERS: ATTEND Urology
DX: N40.0 Benign prostatic hyperplasia without lower urinary tract symptoms (principal); E78.5 Hyperlipidemia, unspecified; Z86.73 Personal history of transient ischemic attack (TIA), and cerebral infarction without residual deficits; Z98.890 Other specified postprocedural states; Z90.89 Acquired absence of other organs; Z83.3 Family history of diabetes mellitus; Z82.49 Family history of ischemic heart disease and other diseases of the circulatory system; Z79.899 Other long term (current) drug therapy
CPT/HCPCS: 88305; 72195; 55700; J1580; J2003; J2704; 88344

== ENCOUNTER → 2024-11-15 | Outpatient (CLI) | payer MEDICARE ==
[2024-11-15 10:03] LABS: Appearance,Urine Clear (Clear); Bilirubin,Urine Negative (Negative); Blood,Urine Trace (Negative); Color,Urine Yellow; Glucose,Urine (UA) Negative (Negative); Ketones,Urine Negative (Negative); Leukocyte Esterase,Urine Negative (Negative); Mucus,Urine Moderate /hpf; Nitrite,Urine Negative (Negative); Protein,Urine Negative (Negative); RBC,Urine 1 /hpf (0-5); Specific Gravity,Urine 1.024 (1.001-1.035); Squamous Epithelial Cell,Urine <1 /hpf (0-4); Urobilinogen,Urine <2.0 mg/dL (<2.0); WBC,Urine <1 /hpf (0-5)
[2024-11-15 16:50] LABS: Basophils # (A) 0.04 X 10*3/uL (0.00-0.10); Basophils % (A) 0.8 %; Eosinophils # (A) 0.16 X 10*3/uL (0.04-0.35); Eosinophils % (A) 3.2 %; HCT 44.9 % (39.6-50.0); HGB 14.6 g/dL (13.0-17.0); Lymphocytes # (A) 1.28 X 10*3/uL (0.90-5.00); Lymphocytes % (A) 25.7 %; MCH 29.4 pg (27.0-32.0); MCHC 32.5 g/dL (32.0-37.0); MCV 90.5 FL (80.0-97.0); Mean Platelet Volume 10.6 FL (9.5-12.2); Monocytes # (A) 0.51 X 10*3/uL (0.20-1.00); Monocytes % (A) 10.2 %; NRBC Per 100 WBC 0 X 10*3/uL (0.00-0.01); Neutrophils # (A) 2.99 X 10*3/uL (1.80-7.70); Neutrophils % (A) 59.9 %; Platelet Count 217 X 10*3/uL (140-440); RBC 4.96 X 10*6/uL (4.40-5.60); RDW 13.1 % (11.5-14.5); WBC 4.99 X 10*3/uL (4.50-10.00)
[2024-11-15 18:14] LABS: BUN/Creat Ratio 16.44 Ratio (12.00-20.00); Blood Urea Nitrogen 14.8 mg/dL (9.0-27.0); Calcium 9.8 mg/dL (8.7-10.3); Carbon Dioxide 27.2 mmol/L (21.6-31.8); Chloride 102 mmol/L (96-109); Glucose 107 mg/dL (70-110); Potassium 4.8 mmol/L (3.5-5.5); Sodium 137 mmol/L (135-145)
== END | disposition home or self-care (01) ==
LOC: LABPAT 09:04
PROVIDERS: ATTEND Urology
DX: Z01.812 Encounter for preprocedural laboratory examination (principal); C61 Malignant neoplasm of prostate
CPT/HCPCS: 80048; 81001; 85025; 86850; 86900; 86901; 87086

== ENCOUNTER 2024-11-24 06:59 | Day surgery (SDC) | payer MEDICARE ==
--- NOTE | 2024-11-23 10:59 | P.HPIHPCON ---
History of Present Illness H&P Date: 11/23/24 Chief Complaint: Prostate cancer This is a 73-year-old male with history of [place] 7 prostate cancer. Discussed with him given the high-volume disease I recommend proceeding with definitive treatment. Option of robotic radical prostatectomy versus radiation therapy was discussed with him in details. He agreed to proceed with a robotic radical prostatectomy. He is aware of the risk which include but not limited to bleeding, infection, urinary incontinence, erectile dysfunction discussed also risk of injury to nearby organs. Risk of anesthesia was also discussed with him in details. Discussed given his previous history of bowel resection potential I might not be able to perform the procedure if there is significant adhesion and there is potential of bowel injury. Discussed also risk of cancer recurrence and need for additional treatments. He understood all the risk and agreed to proceed Consent for Procedure: I have explained the operation/procedure to the patient, including the risks, benefits, side effects, alternative therapies (including not receiving the proposed treatment or service), the likelihood of the patient achieving his/her goals, and potential recuperation problems for the procedure/sedation/analgesia, as well as any blood products, if indicated. I also explained to the patient the risks, benefits and side effects of the alternatives, as well as the risks related to not receiving the proposed procedure, care, treatment, or services. Past Medical History Past Medical History: Cancer, CVA/TIA, Hyperlipidemia Additional Past Medical History / Comment(s): Hx CVA in 2008 - initially residual dizziness, balance problems, falls- no problems now; colon cancer 2022, prostate ca 2024 History of Any Multi-Drug Resistant Organisms: None Reported Past Surgical History: Bowel Resection, Tonsillectomy Additional Past Surgical History / Comment(s): Colonoscopy, deviated septum surgery Past Anesthesia/Blood Transfusion Reactions: No Reported Reaction Smoking Status: Never smoker - Past Family History Father Additional Family Medical History / Comment(s): parkinsons. of pneumonia Medications and Allergies Home Medications Medication Instructions Recorded Confirmed Type Rosuvastatin [Crestor] 20 mg PO HS 09/09/24 11/21/24 History Allergies Allergy/AdvReac Type Severity Reaction Status Date / Time No Known Allergies Allergy Verified 11/21/24 14:44 Surgical - Exam - General no distress, no pain - Eyes normal ocular movement, no pale - ENT normal nares, normal mucosa - Respiratory normal expansion, normal respiratory effort - Abdomen Abdomen: soft, non tender - Psychiatric oriented to time, oriented to person, oriented to place Assessment and Plan Assessment: OR for robotic radical prostatectomy with bilateral pelvic lymph node dissection
[~2024-11-24 06:59] MED LIST changes: -LIDOCAINE 1% INJ 10MG/ML (20 ML MDV) ONE; -PROPOFOL 10 MG/ML 20 ML VIAL IV ONE; -fentaNYL (PF) 50 MCG/ML 2 ML AMP IV PRN
[2024-11-24] MEDS ORDERED: HYDROmorphone 0.5 MG/0.5 ML SYRINGE IVP PRN (07:00)
[2024-11-24] MEDS: LACTATED RINGERS 1,000 ML IV SCH (07:45)
[2024-11-24] MEDS: ONDANSETRON 4 MG/2 ML VIAL IVP ONE (07:46)
[2024-11-24] MEDS: DEXAMETHASONE SOD PHOSPHATE 4 MG/ML 1 ML VIAL IV ONE (07:46)
[2024-11-24] MEDS: IV FLUID CONTINUATION 1,000 ML IV ONE ×2 (07:50)
[2024-11-24] MEDS: MIDAZOLAM 2 MG/2 ML VIAL IV ONE (07:59)
[2024-11-24] MEDS: HEPARIN SODIUM,PORCINE 5,000 UNIT/ML 1 ML VIAL SQ PRN (08:10)
[2024-11-24] MEDS ORDERED: SODIUM CHLORIDE 0.9% (PF) 10 ML VIAL ONE (09:45)
[2024-11-24] MEDS ORDERED: ROCURONIUM 10 MG/ML (5 ML VIAL) IV ONE (09:45)
[2024-11-24] MEDS ORDERED: LIDOCAINE 1% INJ 10MG/ML (20 ML MDV) ONE (09:45)
[2024-11-24] MEDS ORDERED: PROPOFOL 10 MG/ML 20 ML VIAL IV ONE (09:45)
[2024-11-24] MEDS ORDERED: MIDAZOLAM 2 MG/2 ML VIAL ONE (09:45)
[2024-11-24] MEDS ORDERED: HYDROmorphone (PF) 1 MG/ML ONE (09:45)
[2024-11-24] MEDS ORDERED: GLYCOPYRROLATE 0.2 MG/ML 2 ML VIAL ONE (09:45)
[2024-11-24] MEDS ORDERED: SUCCINYLCHOLINE CHLORIDE 200 MG/10 ML VIAL IV ONE (09:45)
[2024-11-24] MEDS ORDERED: ROPIVACAINE 5 MG/ML 30 ML VIAL ONE (09:45)
[2024-11-24] MEDS ORDERED: DEXAMETHASONE SOD PHOSPHATE 4 MG/ML 1 ML VIAL ONE (09:45)
[2024-11-24] MEDS ORDERED: NEOSTIGMINE 1 MG/ML 10 ML VIAL ONE (09:45)
[2024-11-24] MEDS ORDERED: fentaNYL (PF) 50 MCG/ML 2 ML AMP ONE (09:45)
[2024-11-24] MEDS: BUPIVACAINE (PF) 0.25% 30 ML VIAL SQ ONE ×2 (10:12→12:51)
[2024-11-24] MEDS ORDERED: HYDROmorphone 1 MG/ML 1 ML SYRINGE IVP PRN (13:21)
[2024-11-24] MEDS ORDERED: ONDANSETRON 4 MG/2 ML VIAL IVP PRN (13:21)
--- NOTE | 2024-11-24 13:31 | P.OP ---
Date of Procedure: 11/24/24 Preoperative Diagnosis: prostate cancer Postoperative Diagnosis: same Procedure(s) Performed: robotic assisted radical prostatectomy and bilateral pelvic sharon dissection Implants: none Anesthesia: RUBINAA Surgeon: Brenton Jack Estimated Blood Loss (ml): 100 Pathology: other (prostate, seminal veiscles, bilateral pelvic sharon dissection) Condition: stable Disposition: PACU Indications for Procedure: This is a 73-year-old male with history of [place] 7 (3+4) prostate cancer. Discussed with him given the high-volume disease I recommend proceeding with definitive treatment. Option of robotic radical prostatectomy versus radiation therapy was discussed with him in details. He agreed to proceed with a robotic radical prostatectomy. He is aware of the risk which include but not limited to bleeding, infection, urinary incontinence, erectile dysfunction discussed also risk of injury to nearby organs. Risk of anesthesia was also discussed with him in details. Discussed given his previous history of bowel resection potential I might not be able to perform the procedure if there is significant adhesion and there is potential of bowel injury. Discussed also risk of cancer recurrence and need for additional treatments. He understood all the risk and agreed to proceed Description of Procedure: After preoperative antibiotics were started, the patient was taken to the operating room. Anesthesia was induced and the patient was placed in a supine position, with adequate padding of the pressure points, shoulders, back, legs and arms. He was then prepped and draped in the standard fashion. A critical pause was performed using two patient identifiers. A 16F aden catheter was placed to gravity drainage. Next an incision was made at the upper edge of his previous incision along the midline. Subcutaneous tis mega was dissected down using cautery. Next the fascia was grasped and incised sharply. There was some omentum adherent along the sidewall and along the midline incision. This was swept down using finger dissection. At this time the gel point was placed and pneumo-peritoneum was created to 20 mm Hg without complication, laparoscopy was performed which showed no adhesion along the sideline, and there was no bowel injury upon entry. Under direct vision a 8mm robotic ports was placed lateral to each rectus slightly below the camera port. The left iliac fossa 8mm port was placed. The right culture media laboratory assistant right iliac fossa 12mm port and right paramedian 5mm portwere placed. After the patient was placed in the trendelenberg position, the robot was then docked to the 8mm robotic ports and then each robotic arm and tower was checked in relation to the patient's legs and hands to avoid inadvertent compression. The peritoneal cavity was inspected. Patient had extensive adhesion involving the colon along the left side and all the way down to the cul-de-sac. This was taken down sharply An inverted U-shaped incision began laterally to the left medial umbilical ligament and extended high across the midline to the right umbilical ligament. The limbs of the "U" extended to the level of the vasa on both sides. We next developed the preperitoneal space and the space of Retzius. Cautery was used to dissected the bladder away from the prostate. After the anterior bladder neck was incised and the bladder entered the the posterior bladder neck was exposed and the ureteral orifces identified. The posterior bladder neck was then incised and dissected away from the prostate. The vas and the seminal vesicles were now exposed and dissected to their insertions into the prostate and were not spared. The posterior layer of the Denonvillier's fascia was incised to enter chichi the plane between prostate and perirectal fat. Using the vessel sealer the pedicle was controlled. Complete nerve preservation was performed on the left and partial was performed on the right. The puboprostatic ligament was incised where it inserted into the apex of the prostate and a plane between urethra and dorsal venous complex developed to expose the anterior urethral surface. The anterior wall of the urethra was transected with the cut setting a few millimeters distal to the apex of the prostate. The dorsal vein was ligated using 3-0 V lock bilateral obturator and external iliac lymph node packets were carefully dissected after careful visualization of the hypogastric artery and obturator nerve. There was careful attention paid to hemostasis with judicious use of cautery. The urethrovesical anastomosis was performed . the posterior denovillers was reapproximated using 3-0 V lock. A 6 and 9 inch 3-0 V-Lock suture was used to anastomose the urethra and bladder, starting at the 6:00 posterior position. Mucosa was secured in every stitch, to ensure a mucosa to mucosa anastomosis. The stitch was regularly cinched and the anastomosis tightened. Care was taken to not violate the ureteral orifices. The Aden catheter was advanced, the bladder filled, and the anastomosis was tested, as described above. Anastomsis was watertight at 150 mL The periumbilical fascia was closed with 1-0-PDS suture in figure of eight fashion. All ports were closed with a subcuticular 4-0 monocryl and Dermabond. Sponge, instrument, and needle counts were correct at the end of the case x2. All specimens including prostate and lymph nodes were sent to pathology for diagnosis and will be available in a week. The patient tolerated the surgery well and without complication. He awoke without difficulty and was taken to the recovery room in stable condition
[2024-11-24] MEDS: droPERidol 2.5 MG/ML VIAL IVP ONE (15:09)
[2024-11-24] MEDS: HEPARIN SODIUM,PORCINE 5,000 UNIT/ML 1 ML VIAL SQ SCH (16:21)
[2024-11-24] MEDS: HYDROcodone/APAP 5-325MG 1 EACH TAB PO PRN (16:21)
[2024-11-24] MEDS: D5-0.45% NACL WITH KCL 20MEQ/L 1,000 ML IV SCH (16:21)
[2024-11-24] MEDS: KETOROLAC 15 MG/ML 1 ML VIAL IVP SCH (18:08)
[2024-11-24] MEDS: ATORVASTATIN 40 MG TAB PO SCH (20:31)
[2024-11-25 08:58] VITALS: BP 116/69; PULSE 52; RESP 18; TEMP 97.6
--- NOTE | 2024-11-25 10:00 | P.DS ---
Providers Expected date of discharge: 11/25/24 Attending physician: Brenton Jack MD Primary care physician: ELISE Santamaria Hospital Course: On the day of admission, the patient underwent an uncomplicated RALP. The perioperative course was unremarkable. The patient remained afebrile with stable vital signs throughout the hospitalization. On the first postoperative day, he was tolerating diet and had ambulated. He had no specific complaints. On examination, the abdomen was soft and nondistended. Incisions were clean and dry. The Chapman catheter was draining clear urine. Procedures: Robotic assisted laparoscopic prostatectomy (RALP) with bilateral pelvic lymphadenectomy on November 24, 2024. Patient Condition at Discharge: Good Plan - Discharge Summary Discharge Rx Participant: No New Discharge Prescriptions: New Ciprofloxacin HCl [Cipro] 250 mg PO Q12HR #6 tablet Ketorolac [Toradol] 10 mg PO Q6HR PRN #10 tab PRN Reason: Pain No Action Rosuvastatin [Crestor] 20 mg PO HS Discharge Medication List Rosuvastatin [Crestor] 20 mg PO HS 09/09/24 [History] Ciprofloxacin HCl [Cipro] 250 mg PO Q12HR #6 tablet 11/25/24 [Rx] Ketorolac [Toradol] 10 mg PO Q6HR PRN #10 tab 11/25/24 [Rx] Follow up Appointment(s)/Referral(s): Brenton Jack MD [STAFF PHYSICIAN] - 10 Days Activity/Diet/Wound Care/Special Instructions: Discharge home with Chapman catheter. Instruct patient to use overnight drainage bag as well as urinary leg bag. Okay to shower. Diet as tolerated. No lifting, driving, or strenuous activity. Reassure patient that abdominal wall ecchymosis and penoscrotal swelling are normal. Instruct patient to begin taking antibiotics one day prior to Chapman catheter removal. Discharge Disposition: HOME SELF-CARE
--- NOTE | 2024-11-27 17:22 | P.ANPRN ---
Procedure Note - Anesthesia - Nerve Block Performed Bilateral Erector Spinae Single Time Out Performed: Yes Date of Procedure: 11/25/24 Procedure Start Time: 07:59 Procedure Stop Time: 08:05 Location of Patient: PreOp Indication: Acute Post-Operative Pain, Requested by Surgeon Sedation Type: Sedate with meaningful contact maintained Preparation: Sterile Prep Position: Prone Needle Types: Pajunk Needle Gauge: 21 Ultrasound used to visualize needle placement: Yes Ultrasound used to observe medication spread: Yes Blood Aspirated: No Pain Paresthesia on Injection Noted: No Resistance on Injection: Normal Image Stored and Saved: Yes Events: Uneventful and Well Tolerated (Ropivacaine 0.5% 15 cc plus normal saline 10 cc plus dexamethasone 4 mg given at L1 bilaterally)
== END 2024-11-25 13:33 | disposition home or self-care (01) ==
LOC: OR 06:59 → 4SSUR 12:55 → OR 11-25 13:33
PROVIDERS: ATTEND Urology
DX: C61 Malignant neoplasm of prostate (principal); E78.5 Hyperlipidemia, unspecified; G89.18 Other acute postprocedural pain; Z86.73 Personal history of transient ischemic attack (TIA), and cerebral infarction without residual deficits; Z90.49 Acquired absence of other specified parts of digestive tract; Z90.89 Acquired absence of other organs; Z79.899 Other long term (current) drug therapy; Z85.038 Personal history of other malignant neoplasm of large intestine
CPT/HCPCS: 55866; 64468; 88307; 88309; J2250; J0330; J1644 ×2; J1100; J2710; J0690; J2405; J2003; J3010; J1171; J2795; J1885 ×2; J2704; J0665; J1596

== ENCOUNTER → 2025-01-02 | Outpatient (CLI) | payer MEDICARE | END | disposition home or self-care (01) | LOC: LABWHC1 07:31 | PROVIDERS: ATTEND Urology | DX: C61 Malignant neoplasm of prostate (principal) | CPT/HCPCS: 36415; 84153 ==